=== PATIENT | male | born 1955 | race Caucasian/White ===

== ENCOUNTER 2016-11-20 07:19 | Day surgery (SDC) | payer BC ==
--- NOTE | ~2016-11-20 | EGD ---
EGD REPORT [facility] [address] [place] [place] [address] NAME: SMITH MASON : [birth year] STATUS : REG [facility]#: [id number] AGE: 61 ADM/REG DATE : 11/20/16 MR#: [id number] REPORT SERV DATE: 11/20/16 DICTATED BY: MARY JO HERNANDEZ DATE: 11/20/16 REPORT STATUS : Draft TRANSCRIBED BY: [employer] DATE: 11/20/16 [facility] Patient Name: Smith Mason Date of : 1955 Attending MD: MARY JO HERNANDEZ MD Procedure Date No Time: 11/20/2016 Procedure: Colonoscopy Indications: High risk colon cancer surveillance: Personal history of colonic polyps Referring MD: JON PELAYO Medicines: as per anesthesia Complications: No immediate complications. Procedure: Pre-Anesthesia Assessment: - ASA Grade Assessment: II - A patient with mild systemic disease. After I obtained informed consent, the scope was passed under direct vision. Throughout the procedure, the patient's blood pressure, pulse, and oxygen saturations were monitored continuously. The PCF [id number] was introduced through the anus and advanced to the cecum, identified by appendiceal orifice and ileocecal valve. The colonoscopy was performed without difficulty. The patient tolerated the procedure. The quality of the bowel preparation was adequate to identify polyps. Findings: The perianal and digital rectal examinations were normal. Internal hemorrhoids were found during endoscopy and were mild. Impression: - Internal hemorrhoids. Recommendation: - Repeat colonoscopy in 5 years for surveillance. Procedure Code(s): --- Professional --- 56011, Colonoscopy, flexible, proximal to splenic flexure; diagnostic, with or without collection of specimen(s) by brushing or washing, with or without colon decompression (separate procedure) Diagnosis Code(s): --- Professional --- K64.8, Other hemorrhoids Z86.010, Personal history of colonic polyps CPT copyright 2013 [employer]. All rights reserved. EGD REPORT [facility] [address] [address] NAME: SMITH MASON : [birth year] [place] [facility] [place] [id number] AGE: 61 ADM/REG DATE : 11/20/16 MR#: [id number] REPORT SERV DATE: 11/20/16 DICTATED BY: MARY JO HERNANDEZ. DATE: 11/20/16 REPORT STATUS : Draft TRANSCRIBED BY: [employer] DATE: 11/20/16 The codes documented in this report are preliminary and upon printing manager review may be revised to meet current compliance requirements. MARY JO HERNANDEZ MD 11/20/2016 8:39 AM This report has been signed electronically. Number of Addenda: 0 Note Initiated On: 11/20/2016 7:44 AM Scope Withdrawal Time 0 hours 7 minutes 10 seconds [id number] [id number]
[~2016-11-20 07:19] MED LIST: ASAB PO; B12250T PO; CARDIZEM LA180 MG PO; COZ50 PO; DIABETA5 PO; FERROUS SULF325 M1 PO; FIBERCON PO; GLUCOPHAGE1000 MG PO; JARDI25B PO; LIPITOR40 PO; LOFIB67 PO; MIRALAX POWDER1 PKT PO; MULTIVITAMI1 PO; PROMEGA PO; TRULICITY1.5 MG/0.5 SQ; VITC500 PO
== END 2016-11-20 23:59 | disposition home or self-care (01) ==
LOC: DMU 07:19
PROVIDERS: Internal Medicine Gastroenterology
PROC: 0DJD8ZZ Inspection of Lower Intestinal Tract, Via Natural or Artificial Opening Endoscopic (ICD-10-PCS; principal; 2016-11-20 08:30)
DX: K64.8 Other hemorrhoids (principal); I10 Essential (primary) hypertension; E78.00 Pure hypercholesterolemia, unspecified; E11.9 Type 2 diabetes mellitus without complications; Z79.82 Long term (current) use of aspirin; Z86.010 Personal history of colon polyps; Z79.899 Other long term (current) drug therapy; Z98.890 Other specified postprocedural states
CPT/HCPCS: 82962